=== PATIENT | male | born 1985 | race Caucasian/White ===

== ENCOUNTER 2016-12-17 21:24 | Emergency (ER) | payer OTHER, SELFPAY ==
[~2016-12-17] VITALS: Ht 188 cm; Wt 113.6 kg
[2016-12-17] MEDS ORDERED: LORA10CA PO (21:40)
[2016-12-18] MEDS ORDERED: LIDOCAINE 2% MDV 20 ML VIAL SC ONE (00:15)
[2016-12-18 01:02] VITALS: BP 145/88
== END 2016-12-18 01:04 | disposition home or self-care (01) ==
LOC: M ED 21:24
DX: S01.511A Laceration without foreign body of lip, initial encounter (principal); Z72.0 Tobacco use; W20.8XXA Other cause of strike by thrown, projected or falling object, initial encounter; Y92.89 Other specified places as the place of occurrence of the external cause; Y93.89 Activity, other specified; Y99.0 Civilian activity done for income or pay